=== PATIENT | female | born 1990 | race Caucasian/White ===

== ENCOUNTER 2018-08-06 22:46 | Emergency (ER) | payer MEDICAID ==
[~2018-08-06] VITALS: Ht 160 cm; Wt 68.2 kg
[2018-08-06 22:52] VITALS: Ht 160 cm; Wt 68.2 kg
[2018-08-06] MEDS ORDERED: XANAX0.5 MG PO (22:55)
[2018-08-06] MEDS ORDERED: SEROQUEL200 MG (22:55)
[2018-08-06] MEDS ORDERED: BUPROPION XL300 MG PO (22:55)
[2018-08-06] MEDS ORDERED: ATARAX 25 MG TA25 MG PO (22:56)
[2018-08-06] MEDS ORDERED: IMITREX100 MG PO (22:56)
[2018-08-06] MEDS ORDERED: ZOLOFT100 MG (22:56)
[2018-08-06] MEDS ORDERED: CELEXA20 MG PO (22:56)
[2018-08-06] MEDS ORDERED: BUPRENORPHIN-N1 EACH SL (22:57)
[2018-08-06] MEDS ORDERED: NAPROSYN500 MG PO (22:57)
[2018-08-06 23:57] LABS: BASOPHILS 0.2 % (0-2); EOSINOPHILS 1.7 % (0-7); HEMATOCRIT 32.1 % (36.0-48.0); HEMOGLOBIN 10.4 g/dL (12-16); LYMPHOCYTES 39.7 % (15-50); MCH 28.7 pg (26.0-34.0); MCHC 32.4 g/dL (31.0-37.0); MCV 88.4 fL (80.0-100.0); MEAN PLATELET VOLUME 9.6 fL (7.4-10.4); MONOCYTES 7.4 % (2-11); PLATELET COUNT 178 10x3/uL (130-400); RBC 3.63 10x6/uL (4.00-5.40); RDW 13.3 % (11.5-14.5); WBC 4.8 10x3/uL (4.8-10.8)
[2018-08-07 00:39] LABS: ALBUMIN 3.2 g/dL (3.4-5.0); ALKALINE PHOSPHATASE 59 U/L (46-116); ALT (SGPT) 21 U/L (10-68); BILIRUBIN - TOTAL 0.34 mg/dL (0.2-1.3); CALC OSMOLALITY 277 mosm/kg (275-300); CALCIUM 8.2 mg/dL (8.5-10.1); CARBON DIOXIDE 27.5 mmol/L (21.0-32.0); CHLORIDE - SERUM 103 mmol/L (98-107); CREATININE - SERUM 0.8 mg/dL (0.6-1.3); GLUCOSE 105 mg/dL (74-106); MAGNESIUM - SERUM 1.8 mg/dL (1.8-2.4); POTASSIUM - SERUM 3.8 mmol/L (3.5-5.1); PROTEIN - SERUM 6.1 g/dL (6.4-8.2); SODIUM 140 mmol/L (136-145); UREA NITROGEN 10 mg/dL (7-18); eGFR NON AFRICAN AMERICAN 90 mL/min (90-120)
[2018-08-07 01:12] LABS: APPEARANCE CLEAR (CLEAR); BILIRUBIN NEGATIVE (NEGATIVE); COLOR YELLOW (YELLOW); GLUCOSE NEGATIVE (NEGATIVE); KETONE NEGATIVE (NEGATIVE); NITRITE NEGATIVE (NEGATIVE); PROTEIN NEGATIVE (NEGATIVE); UROBILINOGEN NORMAL (NORMAL)
[2018-08-07 01:13] LABS: HCG URINE NEGATIVE (NEGATIVE)
[2018-08-07 02:06] LABS: UDS - AMPHET NEGATIVE QUAL (NEGATIVE); UDS - BARB NEGATIVE QUAL (NEGATIVE); UDS - BENZO NEGATIVE QUAL (NEGATIVE); UDS - COCAINE NEGATIVE QUAL (NEGATIVE); UDS - OPIATE NEGATIVE QUAL (NEGATIVE); UDS - PCP NEGATIVE QUAL (NEGATIVE); UDS - THC NEGATIVE QUAL (NEGATIVE)
[2018-08-07 03:50] VITALS: BP 104/55
== END 2018-08-07 04:47 | disposition other institution (70) ==
LOC: D.ER 22:46
PROVIDERS: Family Medicine
DX: G40.89 Other seizures (principal); R53.83 Other fatigue; R55 Syncope and collapse

== ENCOUNTER 2019-07-04 11:17 | Emergency (ER) | payer MEDICAID ==
[~2019-07-04] VITALS: Ht 160 cm; Wt 59.1 kg
[~2019-07-04 11:17] MED LIST: ATARAX 25 MG TA25 MG PO; BUPRENORPHIN-N1 EACH SL; BUPROPION XL300 MG PO; CELEXA20 MG PO; IMITREX100 MG PO; NAPROSYN500 MG PO; SEROQUEL200 MG; XANAX0.5 MG PO; ZOLOFT100 MG
[2019-07-04 11:20] VITALS: Ht 160 cm; Wt 59.1 kg
[2019-07-04 12:47] LABS: BASOPHILS 0.4 % (0-2); EOSINOPHILS 2.6 % (0-7); HEMATOCRIT 35.7 % (36.0-48.0); IMMATURE GRANULOCYTES 0.2 % (0-5); LYMPHOCYTES 42.8 % (15-50); MCH 29.1 pg (26.0-34.0); MCHC 33.6 g/dL (31.0-37.0); MCV 86.7 fL (80.0-100.0); MEAN PLATELET VOLUME 9.6 fL (7.4-10.4); MONOCYTES 7.1 % (2-11); NEUTROPHILS 46.9 % (40-80); RBC 4.12 10x6/uL (4.00-5.40); RDW 12.9 % (11.5-14.5); WBC 5.3 10x3/uL (4.8-10.8)
[2019-07-04 12:59] LABS: CALC OSMOLALITY 285 mosm/kg (275-300); CALCIUM 8.4 mg/dL (8.5-10.1); CARBON DIOXIDE 27.9 mmol/L (21.0-32.0); CHLORIDE - SERUM 108 mmol/L (98-107); CREATININE - SERUM 0.8 mg/dL (0.6-1.3); GLUCOSE 93 mg/dL (74-106); SODIUM 143 mmol/L (136-145); UREA NITROGEN 16 mg/dL (7-18); eGFR NON AFRICAN AMERICAN 89 mL/min (90-120)
[2019-07-04 13:03] LABS: PLATELET COUNT 218 10x3/uL (130-400)
[2019-07-04 13:07] LABS: ALBUMIN 3.4 g/dL (3.4-5.0); ALKALINE PHOSPHATASE 81 U/L (30-120); ALT (SGPT) 48 U/L (10-68); BILIRUBIN - TOTAL 0.25 mg/dL (0.2-1.3); PROTEIN - SERUM 5.9 g/dL (6.4-8.2)
[2019-07-04] MEDS ORDERED: ACETAMINOPHEN500 M1 PO (13:07)
[2019-07-04] MEDS ORDERED: IBUPROFEN800 MG PO (13:07)
[2019-07-04] MEDS ORDERED: CYCLOBENZAPRINE10 MG PO (13:07)
[2019-07-04 13:18] LABS: APPEARANCE CLEAR (CLEAR); COLOR YELLOW (YELLOW); SPECIFIC GRAVITY 1.015 (1.005-1.020)
[2019-07-04 13:19] LABS: BILIRUBIN NEGATIVE (NEGATIVE); GLUCOSE NEGATIVE (NEGATIVE); KETONE NEGATIVE (NEGATIVE); NITRITE NEGATIVE (NEGATIVE); PROTEIN NEGATIVE (NEGATIVE); UROBILINOGEN NORMAL (NORMAL)
[2019-07-04 13:31] LABS: UDS - AMPHET NEGATIVE QUAL (NEGATIVE); UDS - BARB NEGATIVE QUAL (NEGATIVE); UDS - BENZO NEGATIVE QUAL (NEGATIVE); UDS - COCAINE NEGATIVE QUAL (NEGATIVE); UDS - OPIATE NEGATIVE QUAL (NEGATIVE); UDS - PCP NEGATIVE QUAL (NEGATIVE); UDS - THC NEGATIVE QUAL (NEGATIVE)
[2019-07-04 14:12] VITALS: BP 136/74
== END 2019-07-04 14:18 | disposition home or self-care (01) ==
LOC: D.ER 11:17
PROVIDERS: Family Medicine
DX: R56.9 Unspecified convulsions (principal); R10.9 Unspecified abdominal pain; M79.605 Pain in left leg; J45.909 Unspecified asthma, uncomplicated; Z72.0 Tobacco use

== ENCOUNTER 2019-09-25 17:38 | Emergency (ER) | payer MEDICAID ==
[~2019-09-25] VITALS: Ht 160 cm; Wt 59.1 kg
[~2019-09-25 17:38] MED LIST changes: +ACETAMINOPHEN500 M1 PO; +CYCLOBENZAPRINE10 MG PO; +IBUPROFEN800 MG PO
[2019-09-25 18:30] VITALS: Ht 160 cm; Wt 59.1 kg
[2019-09-25] MEDS ORDERED: ROBITUSSIN DM 110 ML PO (19:01)
[2019-09-25 20:25] VITALS: BP 103/69
== END 2019-09-25 20:25 | disposition home or self-care (01) ==
LOC: D.ER 17:38
DX: B34.9 Viral infection, unspecified (principal); J45.909 Unspecified asthma, uncomplicated; Z72.0 Tobacco use; R05 Cough; R06.02 Shortness of breath; R07.89 Other chest pain; M79.10 Myalgia, unspecified site; R50.9 Fever, unspecified

== ENCOUNTER 2020-01-27 01:38 | Emergency (ER) | payer MEDICAID ==
[~2020-01-27] VITALS: Ht 160 cm; Wt 63.6 kg
[~2020-01-27 01:38] MED LIST changes: +ROBITUSSIN DM 110 ML PO
[2020-01-27 01:40] VITALS: Ht 160 cm; Wt 63.6 kg
[2020-01-27] MEDS ORDERED: BUSPAR10 MG PO (01:44)
[2020-01-27] MEDS ORDERED: KEPPRA250 MG PO (01:44)
[2020-01-27] MEDS ORDERED: PROPRANOLOL HCL20 MG PO (01:45)
[2020-01-27 02:13] LABS: BASOPHILS 0.3 % (0-2); EOSINOPHILS 2.3 % (0-7); HEMATOCRIT 41.5 % (36.0-48.0); HEMOGLOBIN 14.3 g/dL (12-16); IMMATURE GRANULOCYTES 0.2 % (0-5); LYMPHOCYTES 34.3 % (15-50); MCH 29.2 pg (26.0-34.0); MCHC 34.5 g/dL (31.0-37.0); MCV 84.7 fL (80.0-100.0); MONOCYTES 4.8 % (2-11); NEUTROPHILS 58.1 % (40-80); RDW 12.7 % (11.5-14.5); WBC 8.9 10x3/uL (4.8-10.8)
[2020-01-27 02:20] LABS: CALC OSMOLALITY 270 mosm/kg (275-300); CARBON DIOXIDE 24.1 mmol/L (21.0-32.0); CHLORIDE - SERUM 103 mmol/L (98-107); CREATININE - SERUM 0.7 mg/dL (0.6-1.3); GLUCOSE 101 mg/dL (74-106); POTASSIUM - SERUM 3.7 mmol/L (3.5-5.1); SODIUM 136 mmol/L (136-145); UREA NITROGEN 9 mg/dL (7-18); eGFR NON AFRICAN AMERICAN > 90 mL/min (90-120)
[2020-01-27 02:22] LABS: PLATELET COUNT 274 10x3/uL (130-400)
[2020-01-27 02:27] LABS: ALBUMIN 4.2 g/dL (3.4-5.0); ALKALINE PHOSPHATASE 89 U/L (30-120); ALT (SGPT) 22 U/L (10-68); BILIRUBIN - TOTAL 0.41 mg/dL (0.2-1.3); MAGNESIUM - SERUM 1.9 mg/dL (1.8-2.4); PROTEIN - SERUM 7.2 g/dL (6.4-8.2)
[2020-01-27 02:28] LABS: HCG SERUM NEGATIVE (NEGATIVE)
[2020-01-27] MEDS ORDERED: KEPPRA500 MG PO (03:10)
[2020-01-27] MEDS ORDERED: PHENERGAN25 M1 PO (03:11)
[2020-01-27 04:41] VITALS: BP 122/83
== END 2020-01-27 04:41 | disposition home or self-care (01) ==
LOC: D.ER 01:38
PROVIDERS: Emergency Medicine
DX: R56.9 Unspecified convulsions (principal); J45.909 Unspecified asthma, uncomplicated